=== PATIENT | female | born 1995 | race Two or more races ===

== ENCOUNTER 2024-09-06 09:13 | Emergency (ER) | payer OTHER ==
[~2024-09-06] VITALS: Ht 160 cm; Wt 59.0 kg
[2024-09-06 10:06] VITALS: BP 118/77; O2SAT 100
[2024-09-06] MEDS ORDERED: ONDANSETRON HCL 2 MG/ML VIAL IV STA (10:21)
[2024-09-06] MEDS ORDERED: FAMOTIDINE/PF 20 MG in 0.9 % SODIUM CHLORIDE 8 ML IV PUSH STA (10:22)
[2024-09-06 10:58] LABS: BASO % 0.3 % (0.1-1.2); EOS # 0.03 (0.04-0.54); EOS % 0.4 % (0.7-7.0); LYMPH # 1.66 (1.18-3.74); LYMPH % 21.0 % (19.3-53.1); MEAN PLATELET VOLUME 9.60 fl (9.4-12.4); MONO # 0.46 (0.24-0.82); MONO % 5.8 % (4.7-12.5); NEUT # 5.70 (1.56-6.13); NEUT % 72.2 % (34.0-71.1); RED CELL DISTRIBUTION WIDTH 13.9 % (11.6-14.4)
[2024-09-06 11:22] LABS: BUN CREA RATIO 27.0 (7.0-25.0); CREATININE SERUM 0.56 mg/dL (0.55-1.02); GFR 126.26; GLUCOSE FASTING 100.0 mg/dL (65-100); OSMOLALITY SERUM 282.0 MOSM/KG (275-295)
[2024-09-06 13:53] LABS: URINE APPEARANCE Clear; URINE BILIRRUBIN Small (NEGATIVE); URINE BLOOD Large; URINE COLOR Red; URINE GLUCOSE Negative (NEGATIVE); URINE KETONE Negative (NEGATIVE); URINE LEUKOCYTE Moderate; URINE NITRATE Negative; URINE UROBILINOGEN 0.2 E.U./dl
[2024-09-06 14:00] LABS: URINE BACTERIA 370.7 uL (0.0-1933); URINE EPITHELIAL CELLS 9.8 uL (0.0-38.8); URINE RBC 2892.2 uL (0.0-20.8); URINE WBC 201.1 uL (0.0-23.2)
[2024-09-06 14:04] LABS: URINE CAST 0.29 uL (0.0-1.40); URINE PROTEIN 100 (NEGATIVE)
[2024-09-06] MEDS ORDERED: levoFLOXacin IN DEXTROSE 5 % 500MG/100ML PIGGYBAG IV ONE (15:15)
[2024-09-06] MEDS ORDERED: ORPHENADRINE CITRATE 30 MG/ML AMPUL IV ONE (16:30)
== END 2024-09-06 18:25 | disposition home or self-care (01) ==
LOC: ER 09:46
PROVIDERS: Emergency Medicine
DX: R10.9 Unspecified abdominal pain (principal); Z88.6 Allergy status to analgesic agent
CPT/HCPCS: 36415; 76830; 96365; 99282; J1956; J2360; J2405; J3490